=== PATIENT | male | born 1995 | race Two or more races ===

== ENCOUNTER 2021-02-02 07:47 | Emergency (ER) | payer OTHER, SELFPAY ==
--- NOTE | ~2021-02-02 | CT_ITS ---
EXAMINATION: CT ABDOMEN AND PELVIS WITH CONTRAST CLINICAL INFORMATION: 25-year-old male with right lower quadrant pain COMPARISON: None TECHNIQUE: Multidetector volumetric images were obtained from the superior aspect of the liver through the pubic symphysis following administration 85 mL of Omnipaque 350 intravenous contrast. Sagittal and coronal reformatted images were obtained on the technologist's workstation. This CT examination was performed using dose optimization techniques as appropriate, variously including the following: *Automated exposure control *Adjustment of mA and/or kV according to patient size (this includes techniques or standardized protocols for targeted exams where dose is matched to indication/reason for exam; i.e. extremities or head) *Use of iterative reconstruction technique DLP: 1437 mGy-cm FINDINGS: Visualized lung bases demonstrate mild dependent atelectasis. The liver is normal in size but demonstrates diffusely decreased attenuation. The gallbladder is normal in appearance. The pancreas, spleen and adrenal glands are unremarkable. Symmetrically enhancing kidneys. There is mild right-sided hydroureteronephrosis secondary to a 2 mm calculus within the right ureterovesical junction. An additional 1 mm nonobstructing calculus is present within the lower pole the right kidney. No left-sided renal calculi are present. The bladder is relatively decompressed and therefore not optimally characterized. Tiny hiatal hernia. The stomach is decompressed. Normal caliber loops of small and large bowel. Normal appendix. Normal caliber abdominal aorta. No retroperitoneal lymphadenopathy. No gross free pelvic fluid. No inguinal lymphadenopathy. Normal-sized prostate gland. No acute osseous abnormality. CT/CT abdomen pelvis w con IMPRESSION: 1. Mild right-sided hydroureteronephrosis secondary to a 2 mm calculus within the right ureterovesical junction. 2. An additional 1 mm nonobstructing right renal calculus is present. 3. No left-sided renal calculi noted. 4. Diffusely decreased liver attenuation suggesting hepatic steatosis. Correlation with liver enzymes recommended.
[2021-02-02 07:49] VITALS: BP 162/89; PULSE 121; RESP 17; TEMP 36.4; O2SAT 100; BMI 33.5
[2021-02-02] MEDS: 0.9 % Sodium Chloride 1,000 ML 999 ML IV (08:20)
[2021-02-02 08:25] LABS: MANUAL DIFF FLAG NO
[2021-02-02 08:26] LABS: Basophils Absolute Auto 0.1 X10*3/uL (0.0-0.2); Basophils Percent Auto 0.6 % (0-2); Eosinophils Absolute Auto 0.2 X10*3/uL (0.0-0.4); Eosinophils Percent Auto 2.4 % (0-4); Hematocrit 45.6 % (42-52); Hemoglobin 14.6 g/dl (14.0-18.0); Imm Gran Abs Auto 0.06 X10*3/uL (0.00-0.03); Imm Gran Pct Auto 0.8 % (0.0-0.4); Lymphocytes Absolute Auto 3.6 X10*3/uL (1.2-4.9); Lymphocytes Percent Auto 46.2 % (20-40); Mean Corpuscular Hemoglobin 27.2 pg (27.0-33.0); Mean Corpuscular Volume 84.9 fL (80-98); Monocytes Absolute Auto 0.6 X10*3/uL (0.1-1.2); Monocytes Percent Auto 7.7 % (2-11); Neutrophils Absolute Auto 3.3 X10*3/uL (2.0-8.3); Neutrophils Percent Auto 42.3 % (45-73); Platelet Count 248 X10*3/uL (160-400); Red Blood Count 5.37 X10*6/uL (4.60-5.80); Red Cell Distribution Width 12.9 % (11.0-16.0); White Blood Count 7.8 X10*3/uL (4.8-10.8)
[2021-02-02 09:11] LABS: Alanine Aminotransferase 69 U/L (0-40); Albumin Level 4.4 g/dL (3.5-5.0); Alkaline Phosphatase 109 U/L (39-117); Aspartate Amino Transferase 35 U/L (5-37); Bilirubin Direct 0.2 mg/dL (0.0-0.5); Bilirubin Total 0.7 mg/dL (0.0-1.0); Total Protein 7.7 g/dL (6.5-8.0)
[2021-02-02 09:12] LABS: Alanine Aminotransferase 70 U/L (0-40); Albumin Level 4.5 g/dL (3.5-5.0); Alkaline Phosphatase 108 U/L (39-117); Anion Gap 18 (12-20); Aspartate Amino Transferase 34 U/L (5-37); Bilirubin Total 0.7 mg/dL (0.0-1.0); Blood Urea Nitrogen 10 mg/dL (9-16); Calcium 10.3 mg/dL (8.4-10.2); Carbon Dioxide 18 mmol/L (22-29); Chloride 107 mmol/L (96-108); Creatinine Clr Calc Pharmacy 163.8; Estimated Glomerular Filt Rate > 60; Glucose Random 139 mg/dL (60-115); Potassium 4.2 mmol/L (3.3-5.1); Sodium 139 mmol/L (135-145); Total Protein 7.7 g/dL (6.5-8.0)
[2021-02-02] MEDS: 0.9 % Sodium Chloride 1,000 ML 999 ML IVCONT (09:20)
[2021-02-02] MEDS: HYDROmorphone HCl 1 MG/ML SYRINGE IVPUSH (09:20)
[2021-02-02] MEDS: ondansetron HCL 4 MG/2 ML VIAL IVPUSH (09:20)
[2021-02-02 09:36] VITALS: BP 159/100; PULSE 94; RESP 16; TEMP 37.1; O2SAT 97
--- NOTE | 2021-02-02 09:37 | ED.ABDPAIN ---
HPI - Abdominal Pain General Chief Complaint: Abdominal Pain Stated Complaint: vomiting Time Seen by Provider: 02/02/21 09:03 Source: patient and family Mode of arrival: ambulatory Limitations: no limitations History of Present Illness HPI narrative: 25 y/o male presenting to the ER from home with acute onset of severe 10/10 RLQ pain that started 1 hour ago. It is associated with nausea and vomiting. He has never had pain like this before. He has never had any abdominal surgeries before. He denies urinary symptoms, fever, chills, diarrhea or constipation. MD elicited complaint: abdominal pain Pertinent past history: none Onset (ago): hour(s) (1) Pain Consistency: constant Location: RLQ Severity: severe Pain scale (0-10): 10 Quality: stabbing and sharp Migration to: no migration Exacerbating factors: nothing Relieving factors: nothing Associated symptoms: nausea and vomiting Related Data Previous Rx's Medication Instructions Recorded hydrocodone-acetaminophen 1 tab PO Q6H PRN #7 tab 02/02/21 ibuprofen 600 mg PO Q8H PRN #14 tab 02/02/21 prednisone 40 mg PO DAILY 3 Days #6 tab 02/02/21 tamsulosin [Flomax] 0.4 mg PO DAILY #6 cap 02/02/21 Allergies Allergy/AdvReac Type Severity Reaction Status Date / Time Penicillins Allergy Hives Verified 02/02/21 09:12 Sulfa (Sulfonamide Allergy Hives Verified 02/02/21 09:12 Antibiotics) Review of Systems Review of Systems Constitutional: No Fever, No Chills ENT/Mouth: No sore throat, No Rhinorrhea, No Swallowing Difficulty Eyes: No Eye Pain, No Swelling, No Redness Cardiovascular: No Chest Pain, No SOB, No Orthopnea, No Edema Respiratory: No Cough, No Sputum, No Wheezing, No dyspnea Gastrointestinal: + Nausea, + Vomiting, No Diarrhea, + abdominal Pain, No Hematochezia, No Melena Genitourinary: No Dysuria, No Urinary Frequency, No Hematuria Musculoskeletal: No joint pain, No Myalgias Skin: No Skin Lesions, No rash Neuro: No Weakness, No Numbness, No Dizziness, No Headache Psych: + Anxiety/Panic, No Depression Heme/Lymph: No Bruising, No Lymphadenopathy Endocrine: No Polyuria, No Polydipsia Physical Exam Vital Signs: Vital Signs: Last Vital Signs Temp 98.3 F 02/02/21 13:12 Pulse 106 H 02/02/21 13:12 Resp 14 02/02/21 13:12 BP 139/86 02/02/21 13:12 Pulse Ox 96 02/02/21 13:12 Body Mass Index 33.5 Appearance: Alert. Oriented X3. Appears to be in severe pain, curled up on the stretcher on his knees Eyes: Pupils equal, round and reactive to light. ENT: Pharynx normal. Neck: Normal inspection. Neck supple. CVS: Tachycardic, regular rhythm. Pulses normal. Respiratory: No respiratory distress. Breath sounds normal. Abdomen: Soft with significant RLQ tenderness, +guarding and rebound. +CVA tenderness on the right Skin: Skin warm and dry. Normal skin color. Normal skin turgor. No rashes. Extremities: No lower extremity edema. Neuro: Oriented X 3. Moving all extremities, walking around uncomfortable, unable to perform full neuro assessment due to significant pain Course Course Course Narrative: 25 y/o male presenting to the ER with acute onset of severe RLQ pain x1 hour along with N/V. Concern for acute appendicitis, possible bowel perforation, question kidney stone. Tachycardic and in severe pain on arrival, vomiting. Will give IV dilaudid, IV zofran, IVF and get STAT CT scan for further evaluation. Reevaluation(s) Reevaluation #1: No leukocytosis. Lab workup unremarkable. CT scan pending. Additional IV dilaudid ordered for ongoing severe pain. Reevaluation #2: CT scan showing Mild right-sided hydroureteronephrosis secondary to a 2 mm calculus within the right ureterovesical junction. IV Toradol, IV decadron and Flomax ordered. Pain improved but persists. Patient will likely pass the stone on his own. Will continue to [facility]. Reevaluation #3: Pain much improved. Pending UA and then patient can be discharged home with pain control, flomax and f/u with Urology UA negative for infection. Stable for d/c home with Urology follow up. Patient counseled, agrees with plan. MDM - Abdominal Pain Lab Data Result diagrams: 02/02/21 08:20 02/02/21 08:20 Labs: Lab Results 02/02/21 02/02/21 02/02/21 Range/Units 08:20 08:20 08:20 WBC 7.8 (4.8-10.8) X10*3/uL RBC 5.37 (4.60-5.80) X10*6/uL Hgb 14.6 (14.0-18.0) g/dl Hct 45.6 (42-52) % MCV 84.9 (80-98) fL MCH 27.2 (27.0-33.0) pg MCHC 32.0 (31.0-36.0) g/dl RDW 12.9 (11.0-16.0) % Plt Count 248 (160-400) X10*3/uL MPV 10.0 (9.4-12.4) fL Immature Gran % (Auto) 0.8 H (0.0-0.4) % Neut % (Auto) 42.3 L (45-73) % Lymph % (Auto) 46.2 H (20-40) % [place] % (Auto) 7.7 (2-11) % Eos % (Auto) 2.4 (0-4) % Baso % (Auto) 0.6 (0-2) % Lymph # (Auto) 3.6 (1.2-4.9) X10*3/uL [place] # (Auto) 0.6 (0.1-1.2) X10*3/uL Eos # (Auto) 0.2 (0.0-0.4) X10*3/uL Baso # (Auto) 0.1 (0.0-0.2) X10*3/uL Abs Immat Gran (auto) 0.06 H (0.00-0.03) X10*3/uL Absolute Neuts (auto) 3.3 (2.0-8.3) X10*3/uL Absolute Nucleated RBC 0.000 (0.0-0.012) X10*3/uL Nucleated RBC % (auto) 0.0 (0.0-0.2) /100WBC Sodium 139 (135-145) mmol/L Potassium 4.2 (3.3-5.1) mmol/L Chloride 107 (96-108) mmol/L Carbon Dioxide 18 L (22-29) mmol/L Anion Gap 18 (12-20) BUN 10 (9-16) mg/dL Creatinine 0.88 (0.5-1.4) mg/dL Estim Creat Clear Calc 163.8 Estimated GFR > 60 Random Glucose 139 H (60-115) mg/dL Lactic Acid (0.5-2.0) mmol/L Lactic Acid Fup @ 2Hr (0.5-2.0) mmol/L Calcium 10.3 H (8.4-10.2) mg/dL Total Bilirubin 0.7 0.7 (0.0-1.0) mg/dL Direct Bilirubin 0.2 (0.0-0.5) mg/dL AST 34 35 (5-37) U/L ALT 70 H 69 H (0-40) U/L Alkaline Phosphatase 108 109 (39-117) U/L Total Protein 7.7 7.7 (6.5-8.0) g/dL Albumin 4.5 4.4 (3.5-5.0) g/dL Urine Color Urine Appearance Urine pH (5.0-8.0) Ur Specific [place] (1.005-1.025) Urine Protein (NEG-TRACE) MG/DL Urine Glucose (UA) (NEG) MG/DL Urine Ketones (NEG) MG/DL Urine Blood (NEG) Urine Nitrite (NEG) Ur Leukocyte Esterase (NEG) Urine RBC (0) /HPF Urine WBC (0-4) /HPF Ur Squamous Epith Cells /LPF Urine Bacteria /LPF Urine Mucus /LPF 02/02/21 02/02/21 02/02/21 Range/Units 10:09 12:29 12:49 WBC (4.8-10.8) X10*3/uL RBC (4.60-5.80) X10*6/uL Hgb (14.0-18.0) g/dl Hct (42-52) % MCV (80-98) fL MCH (27.0-33.0) pg MCHC (31.0-36.0) g/dl RDW (11.0-16.0) % Plt Count (160-400) X10*3/uL MPV (9.4-12.4) fL Immature Gran % (Auto) (0.0-0.4) % Neut % (Auto) (45-73) % Lymph % (Auto) (20-40) % [place] % (Auto) (2-11) % Eos % (Auto) (0-4) % Baso % (Auto) (0-2) % Lymph # (Auto) (1.2-4.9) X10*3/uL [place] # (Auto) (0.1-1.2) X10*3/uL Eos # (Auto) (0.0-0.4) X10*3/uL Baso # (Auto) (0.0-0.2) X10*3/uL Abs Immat Gran (auto) (0.00-0.03) X10*3/uL Absolute Neuts (auto) (2.0-8.3) X10*3/uL Absolute Nucleated RBC (0.0-0.012) X10*3/uL Nucleated RBC % (auto) (0.0-0.2) /100WBC Sodium (135-145) mmol/L Potassium (3.3-5.1) mmol/L Chloride (96-108) mmol/L Carbon Dioxide (22-29) mmol/L Anion Gap (12-20) BUN (9-16) mg/dL Creatinine (0.5-1.4) mg/dL Estim Creat Clear Calc Estimated GFR Random Glucose (60-115) mg/dL Lactic Acid 3.6 H* (0.5-2.0) mmol/L Lactic Acid Fup @ 2Hr 2.6 H* (0.5-2.0) mmol/L Calcium (8.4-10.2) mg/dL Total Bilirubin (0.0-1.0) mg/dL Direct Bilirubin (0.0-0.5) mg/dL AST (5-37) U/L ALT (0-40) U/L Alkaline Phosphatase (39-117) U/L Total Protein (6.5-8.0) g/dL Albumin (3.5-5.0) g/dL Urine Color YELLOW Urine Appearance HAZY Urine pH 6.0 (5.0-8.0) Ur Specific [place] <= 1.005 (1.005-1.025) Urine Protein NEG (NEG-TRACE) MG/DL Urine Glucose (UA) NEG (NEG) MG/DL Urine Ketones NEG (NEG) MG/DL Urine Blood 2+ H (NEG) Urine Nitrite NEG (NEG) Ur Leukocyte Esterase NEG (NEG) Urine RBC 50-75 H (0) /HPF Urine WBC 0 (0-4) /HPF Ur Squamous Epith Cells 1+ /LPF Urine Bacteria NONE /LPF Urine Mucus 1+ /LPF Critical Care Time Critical Care Time Critical Care Time: Yes Total Critical Care Time: 40 Attestation: I have personally provided critical care time exclusive of time spent on separately billable procedures. Time includes review of lab data, radiology results, discussion with consultants, and monitoring for potential decompensation. Intervention performed as documented. Discharge Plan Discharge Clinical Impression: Calculus of kidney Patient Disposition: Home, Self-Care Instructions: Kidney Stones (ED), How to Strain Your Urine (ED) Additional Instructions: Your CT scan showed a small kidney stone on the right side causing slight swelling of your kidney. You will likely pass this on your own in the next 24 hours. Take the prescribed medications as directed. Follow up with Urology in 1 week. If you develop new or worsening symptoms call 911 or come back to the ER for further evaluation. Prescriptions: New tamsulosin [Flomax] 0.4 mg capsule 0.4 mg PO DAILY Qty: 6 RF: 0 ibuprofen 600 mg tablet 600 mg PO Q8H PRN (Reason: pain) Qty: 14 RF: 0 prednisone 20 mg tablet 40 mg PO DAILY 3 Days Qty: 6 RF: 0 hydrocodone-acetaminophen 5-325 mg tablet 1 tab PO Q6H PRN (Reason: pain) Qty: 7 RF: 0 Referrals: Jeronimo Kingsley MD [Physician] - 1 week (kidney stone w/ mild hydro) [facility] [place] Past Medical History Attestation statement: The following information was validated with the patient. Medical History Asthma No known health problems Social History Social History Alcohol intake: unknown Patient Tobacco Use Status: Tobacco use Unknown Advance Directives: No Advance Directives Information Provided: No
[2021-02-02] MEDS: iohexoL 350 MG/ML 100 ML INFUS..BTL IV (10:21)
[2021-02-02 10:33] LABS: Lactic Acid 3.6 mmol/L (0.5-2.0)
[2021-02-02] MEDS: HYDROmorphone HCl 0.5 MG/0.5 ML SYRINGE IVPUSH (10:39)
--- NOTE | 2021-02-02 10:40 | PC.NURSE ---
pt reporting some relief from RLQ pain. denies nausea at this time. appears pale, fatigue, slightly diaphoretic. sinus tach on monitor in low 100s, remains afebrile.
[2021-02-02] MEDS: dexAMETHasone sod phosphate 4 MG/ML VIAL 8 MG IVPUSH (10:58)
[2021-02-02] MEDS: Ketorolac Tromethamine 30 MG/ML VIAL IVPUSH (10:58)
[2021-02-02] MEDS: Tamsulosin HCL 0.4 MG CAPSULE PO (10:59)
[2021-02-02 11:29] VITALS: BP 165/110; PULSE 102; RESP 24; TEMP 36.7; O2SAT 95
[2021-02-02 12:12] LABS: Reflex Lactate? Lactic Acid Added
[2021-02-02 12:53] LABS: ~Lactic Acid-LAB USE ONLY 2.6 mmol/L (0.5-2.0)
[2021-02-02 12:54] LABS: Glucose Urine UA NEG (NEG); Leukocyte Esterase Urine NEG (NEG); Nitrite Urine NEG (NEG); Specific Gravity - Urine <= 1.005 (1.005-1.025); Urine Blood 2+ (NEG); Urine Ketones NEG (NEG); Urine Protein NEG (NEG-TRACE)
[2021-02-02 12:55] LABS: Appearance Urine HAZY; Color Urine YELLOW
[2021-02-02 13:06] LABS: Mucus Urine 1+ /LPF; RBC Urine 50-75 /HPF (0); Squamous Epithelial Cell Urine 1+ /LPF; WBC Urine 0 /HPF (0-4)
[2021-02-02 13:12] VITALS: BP 139/86; PULSE 106; RESP 14; TEMP 36.8; O2SAT 96
[2021-02-02 14:32] LABS: Reflex Lactate? 2 Y
== END 2021-02-02 13:37 | disposition home or self-care (01) ==
PROVIDERS: Physician Assistant; Emergency Provider Emergency Medicine Emergency Medical Services
DX: N13.2 Hydronephrosis with renal and ureteral calculous obstruction (principal); R11.2 Nausea with vomiting, unspecified
CPT/HCPCS: 36415; 74177; 80053; 80076; 81001; 82248; 83605; 85025; 87040; 96361; 96374; 96375; 96376; 99285; 99291; J1100; J1170; J1885; J2405; Q9967

== ENCOUNTER 2024-10-28 19:38 | Emergency (ER) | payer OTHER, SELFPAY ==
[2024-10-28 20:04] VITALS: BP 111/72; PULSE 105; RESP 20; TEMP 37.2; O2SAT 98; BMI 29.1
--- NOTE | 2024-10-28 20:07 | ED.GENADULT ---
HPI - General Adult General Chief complaint: Abdominal Pain Stated complaint: abd pain / hasnt eaten 4 days / nausea Time Seen by Provider: 10/29/24 00:26 Source: patient Limitations: no limitations History of Present Illness ED Provider: Margaret Biggs PA-C HPI narrative: 29-year-old male presents with nausea vomiting diarrhea x3 days. Associated lower abdominal cramping. Generalized malaise, poor oral intake and weakness. No sick contacts with similar symptoms. Denies recent travel, use of antibiotics or hospitalization. Related Data Previous Rx's ?Medication ?Instructions ?Recorded hydrocodone 5 mg-acetaminophen 325 1 tab PO Q6H PRN pain #7 tabs 02/02/21 mg tablet ibuprofen 600 mg tablet 600 mg PO Q8H PRN pain #14 tabs 02/02/21 prednisone 20 mg tablet 40 mg (2 x 20 mg) PO DAILY 3 days 02/02/21 #6 tabs tamsulosin 0.4 mg capsule (Flomax) 0.4 mg PO DAILY #6 caps 02/02/21 dicyclomine 10 mg capsule 10 mg PO BID PRN abdominal pain #7 10/29/24 caps ondansetron HCl 4 mg tablet 4 mg PO Q8H PRN nausea and 10/29/24 vomiting #10 tabs Allergies Allergy/AdvReac Type Severity Reaction Status Date / Time Penicillins Allergy Hives Verified 10/28/24 20:06 Sulfa (Sulfonamide Allergy Hives Verified 10/28/24 20:06 Antibiotics) Review of Systems Review of Systems: Yes all other systems are reviewed and are negative Constitutional: Constitutional: Reports fatigue, Denies fever(s) and Reports malaise Cardiovascular: Cardiovascular: Denies chest pain and Denies dyspnea Respiratory: Respiratory: Denies cough and Denies dyspnea Gastrointestinal: Gastrointestinal: Reports abdominal pain, Reports GI cramping, Reports diarrhea, Reports nausea and Reports vomiting Musculoskeletal: Musculoskeletal: Reports myalgias Endocrine: Endocrine: Reports fatigue PMFSH Past Medical History Attestation statement: The following information was validated with the patient. Medical History Asthma No known health problems Social History Social History (System 05/25/23 @ 14:28 by Alisa Benítez) Alcohol intake: unknown Patient Tobacco Use Status: Tobacco use Unknown Advance Directives: No Advance Directives Information Provided: No Do you have a plan to hurt others: No Plan Physical Exam ED Vital Signs: Vital Signs - 24 hr 10/28/24 20:04 10/28/24 22:33 10/29/24 00:32 Temperature 99.0 F 101.1 F H 99.4 F Pulse Rate 105 H 114 H 91 Respiratory Rate 20 20 20 Blood Pressure 111/72 141/71 H 119/64 Pulse Oximetry 98 94 95 Oxygen Delivery Method Room Air Room Air Room Air BMI result Body Mass Index 29.1 Const Other: Alert ill-appearing Orientation/consciousness: patient oriented x3 Resp Effort & Inspection: normal respiratory effort Cardio Other: Normal peripheral perfusion Skin Other: Warm dry no rash Neuro General: patient oriented x3, gait normal, no focal motor deficits and CN's II-XI intact bilaterally Psych Other: Cooperative Course Course Course Narrative: RME, this is a rapid medical exam performed by Milton Reyes please refer to primary provider for complete H&P- 29-year-old male presents for evaluation abdominal pain, nausea and vomiting for the last 3 days. Plan for labs, urinalysis and viral swabs. Medications Administered Discontinued Medications Generic Name Dose Route Start Last Admin Trade Name Freq PRN Reason Stop Dose Admin Acetaminophen 650 mg 10/28/24 23:19 10/28/24 23:22 Acetaminophen 325 Mg Tablet PO 10/28/24 23:20 650 mg ONCE ONE Administration Medical Decision Making Medical Decision Making [facility] Narrative: 29-year-old male presents with nausea vomiting diarrhea x3 days. Associated lower abdominal cramping. Generalized malaise, poor oral intake and weakness. No sick contacts with similar symptoms. Denies recent travel, use of antibiotics or hospitalization. No chronic issues History: Per patient I have considered the following differential diagnoses: Viral gastroenteritis, viral syndrome, diverticulitis, C diff, traveler's diarrhea Plan: Screening labs and a viral panel were obtained from triage, he is positive for influenza B. we will treat accordingly. He is out of the window for Tamiflu. Thought about diverticulitis, however there was no focal left abdominal pain on exam. He also has no risk factors for C diff or traveler's diarrhea. I have independently reviewed the following tests: Labs: No leukocytosis, not anemic, no electrolyte abnormality, positive for influenza B Lab Data 10/28/24 20:27 10/28/24 23:18 Labs: Lab Results 10/28/24 10/28/24 10/28/24 Range/Units 20:27 22:43 23:18 WBC 9.3 (4.8-10.8) X10*3/uL RBC 5.18 (4.60-5.80) X10*6/uL Hgb 14.8 (14.0-18.0) g/dl Hct 43.5 (42.0-52.0) % MCV 84.0 (80.0-98.0) fL MCH 28.6 (27.0-33.0) pg MCHC 34.0 (31.0-36.0) g/dl RDW 13.9 (11.0-16.0) % Plt Count 179 (160-400) X10*3/uL MPV 9.4 (9.4-12.4) fL Immature Gran % (Auto) 0.3 (0.0-0.4) % Neut % (Auto) 77.8 H (45-73) % Lymph % (Auto) 13.8 L (20-40) % [place] % (Auto) 8.0 (2-11) % Eos % (Auto) 0.0 (0-4) % Baso % (Auto) 0.1 (0-2) % Lymph # (Auto) 1.3 (1.2-4.9) X10*3/uL [place] # (Auto) 0.8 (0.1-1.2) X10*3/uL Eos # (Auto) 0.0 (0.0-0.4) X10*3/uL Baso # (Auto) 0.0 (0.0-0.2) X10*3/uL Abs Immat Gran (auto) 0.03 (0.00-0.03) X10*3/uL Absolute Neuts (auto) 7.2 (2.0-8.3) x10*3/uL Absolute Nucleated RBC 0.000 (0.0-0.012) X10*3/uL Nucleated RBC % (auto) 0.0 (0.0-0.2) /100WBC Sodium 131 L 137 (135-145) mmol/L Potassium 5.8 H 4.4 D (3.3-5.1) mmol/L Chloride 108 105 (96-108) mmol/L Carbon Dioxide 13 L 24 (22-29) mmol/L Anion Gap 16 12 (12-20) BUN 11 12 (9-16) mg/dL Creatinine 0.90 0.90 (0.5-1.4) mg/dL Estim Creat Clear Calc 149.2 149.2 Estimated GFR > 60 > 60 Random Glucose 107 116 H (60-115) mg/dL Calcium 9.4 D 9.7 (8.4-10.2) mg/dL Total Bilirubin 0.8 0.8 (0.0-1.0) mg/dL AST 73 H 29 (5-37) U/L ALT 16 22 (0-40) U/L Alkaline Phosphatase 89 81 (39-117) U/L Total Protein 8.8 H 7.6 (6.5-8.0) g/dL Albumin 3.8 4.4 (3.5-5.0) g/dL Lipase 19 (8-78) U/L Urine Color Dark Yellow Urine Appearance Clear Urine pH 7.0 (5.0-9.0) Ur Specific [place] >= 1.030 H (1.005-1.025) Urine Protein 30 (1+) H (Neg-Trace) mg/dL Urine Glucose (UA) Negative (Negative) mg/dL Urine Ketones 40 (Negative) mg/dL Urine Blood Negative (Negative) Urine Nitrite Negative (Negative) Ur Leukocyte Esterase Negative (Negative) Urine RBC 0-2 (0-2) /HPF Urine WBC 0-5 (0-5) /HPF Ur Squamous Epith Cells 0-2 (0-2) /HPF Urine Bacteria None Seen (None Seen) Hyaline Casts 0-2 (0-2) /LPF Influenza Type A (PCR) NEGATIVE (Negative) Influenza Type B (PCR) POSITIVE A (Negative) RSV RNA Qual (PCR) NEGATIVE (Negative) SARS-CoV-2 RNA (RT-PCR) NEGATIVE (Negative) Discharge Plan Discharge Clinical Impression: Influenza B, Gastroenteritis Patient Disposition: Home, Self-Care Instructions: Influenza (ED), Gastroenteritis (ED) Additional Instructions: You tested positive for influenza B, this is the cause of your symptoms. See home care instructions. Use the dicyclomine as needed for abdominal pain and diarrhea, uses Zofran as needed for nausea. Use [id number] Tylenol and ibuprofen for body ache, headache and fever. Follow up with your primary care provider as needed. Prescriptions: New ondansetron HCl 4 mg tablet 4 mg PO Q8H PRN (Reason: nausea and vomiting) Qty: 10 0RF dicyclomine 10 mg capsule 10 mg PO BID PRN (Reason: abdominal pain) Qty: 7 0RF No Action tamsulosin [Flomax] 0.4 mg capsule 0.4 mg PO DAILY Qty: 6 0RF ibuprofen 600 mg tablet 600 mg PO Q8H PRN (Reason: pain) Qty: 14 0RF prednisone 20 mg tablet 40 mg PO DAILY 3 Days Qty: 6 0RF hydrocodone-acetaminophen 5-325 mg tablet 1 tab PO Q6H PRN (Reason: pain) Qty: 7 0RF Rx Instructions: partial fill ok Print Language: Slovak
[2024-10-28 20:29] LABS: MANUAL DIFF FLAG NO
[2024-10-28 20:31] LABS: Basophils Percent Auto 0.1 % (0-2); Hematocrit 43.5 % (42.0-52.0); Hemoglobin 14.8 g/dl (14.0-18.0); Imm Gran Abs Auto 0.03 X10*3/uL (0.00-0.03); Imm Gran Pct Auto 0.3 % (0.0-0.4); Lymphocytes Absolute Auto 1.3 X10*3/uL (1.2-4.9); Lymphocytes Percent Auto 13.8 % (20-40); Mean Corpuscular Hemoglobin 28.6 pg (27.0-33.0); Mean Platelet Volume 9.4 fL (9.4-12.4); Monocytes Absolute Auto 0.8 X10*3/uL (0.1-1.2); Neutrophils Absolute Auto 7.2 x10*3/uL (2.0-8.3); Neutrophils Percent Auto 77.8 % (45-73); Platelet Count 179 X10*3/uL (160-400); Red Blood Count 5.18 X10*6/uL (4.60-5.80); Red Cell Distribution Width 13.9 % (11.0-16.0); White Blood Count 9.3 X10*3/uL (4.8-10.8)
[2024-10-28 20:49] LABS: Alanine Aminotransferase 16 U/L (0-40); Albumin Level 3.8 g/dL (3.5-5.0); Alkaline Phosphatase 89 U/L (39-117); Anion Gap 16 (12-20); Aspartate Amino Transferase 73 U/L (5-37); Bilirubin Total 0.8 mg/dL (0.0-1.0); Blood Urea Nitrogen 11 mg/dL (9-16); Calcium 9.4 mg/dL (8.4-10.2); Carbon Dioxide 13 mmol/L (22-29); Chloride 108 mmol/L (96-108); Creatinine Clr Calc Pharmacy 149.2; Estimated Glomerular Filt Rate > 60; Glucose Random 107 mg/dL (60-115); Lipase 19 U/L (8-78); Potassium 5.8 mmol/L (3.3-5.1); Sodium 131 mmol/L (135-145); Total Protein 8.8 g/dL (6.5-8.0)
[2024-10-28 22:33] VITALS: BP 141/71; PULSE 114; RESP 20; TEMP 38.4; O2SAT 94
--- NOTE | 2024-10-28 22:38 | PC.NURSE ---
spoke with lab re:serology for cov/flu/rsv- per circus laborer Curtis MAX was notified of recollect. specimen to be recollected at this time
[2024-10-28 22:51] LABS: Appearance Urine Clear; Color Urine Dark Yellow; Glucose Urine UA Negative (Negative); Leukocyte Esterase Urine Negative (Negative); Nitrite Urine Negative (Negative); Specific Gravity - Urine >= 1.030 (1.005-1.025); UMIC TRIGGER UACC YES; Urine Blood Negative (Negative); Urine Ketones 40 mg/dL (Negative); Urine Protein 30 (1+) mg/dL (Neg-Trace)
[2024-10-28 22:54] LABS: Bacteria Urine None Seen (None Seen); Hyaline Casts Urine 0-2 /LPF (0-2); RBC Urine 0-2 /HPF (0-2); Squamous Epithelial Cell Urine 0-2 /HPF (0-2); WBC Urine 0-5 /HPF (0-5)
[2024-10-28] MEDS: Acetaminophen 325 MG TABLET 650 MG PO (23:22)
[2024-10-28 23:27] LABS: Influenza A PCR NEGATIVE (Negative); Influenza B PCR POSITIVE (Negative); Resp Syncy Virus RNA Qual PCR NEGATIVE (Negative); SARS COV2 PCR INHOUSE NEGATIVE (Negative)
[2024-10-28 23:38] LABS: Alanine Aminotransferase 22 U/L (0-40); Albumin Level 4.4 g/dL (3.5-5.0); Alkaline Phosphatase 81 U/L (39-117); Anion Gap 12 (12-20); Aspartate Amino Transferase 29 U/L (5-37); Bilirubin Total 0.8 mg/dL (0.0-1.0); Blood Urea Nitrogen 12 mg/dL (9-16); Calcium 9.7 mg/dL (8.4-10.2); Carbon Dioxide 24 mmol/L (22-29); Chloride 105 mmol/L (96-108); Creatinine Clr Calc Pharmacy 149.2; Estimated Glomerular Filt Rate > 60; Glucose Random 116 mg/dL (60-115); Potassium 4.4 mmol/L (3.3-5.1); Sodium 137 mmol/L (135-145); Total Protein 7.6 g/dL (6.5-8.0)
[2024-10-29 00:32] VITALS: BP 119/64; PULSE 91; RESP 20; TEMP 37.4; O2SAT 95
[2024-10-29] MEDS: Ondansetron ODT 8 MG TAB.RAPDIS TRANSLINGU (01:01)
[2024-10-29] MEDS: Dicyclomine HCl 10 MG CAPSULE 20 MG PO (01:01)
[2024-10-29 01:04] VITALS: BP 119/64; PULSE 91; RESP 20; TEMP 37.4; O2SAT 95
== END 2024-10-29 01:05 | disposition home or self-care (01) ==
PROVIDERS: Physician Assistant; Emergency Provider Emergency Medicine; PCP Internal Medicine
DX: J10.1 Influenza due to other identified influenza virus with other respiratory manifestations (principal); K52.9 Noninfective gastroenteritis and colitis, unspecified; R10.30 Lower abdominal pain, unspecified; Z03.818 Encounter for observation for suspected exposure to other biological agents ruled out; J45.909 Unspecified asthma, uncomplicated; Z79.899 Other long term (current) drug therapy
CPT/HCPCS: 0241U; 36415; 80053; 81001; 83690; 85025; 99283; 99284

== ENCOUNTER 2024-12-20 13:48 | Emergency (ER) | payer OTHER, SELFPAY ==
[2024-12-20 14:05] VITALS: BP 133/81; PULSE 71; RESP 16; TEMP 36.4; O2SAT 97; BMI 25.8
--- NOTE | 2024-12-20 14:09 | ED.GENADULT ---
HPI - General Adult General Chief complaint: Dental/Oral Stated complaint: Lip swelling Time Seen by Provider: 12/20/24 17:41 Source: patient Mode of arrival: ambulatory Limitations: no limitations History of Present Illness HPI narrative: This is a 29-year-old man with a past medical history of nephrolithiasis who presents for evaluation of right upper lip pain/edema. Patient states that he popped a pimple on his upper lip 3 days prior to presentation. He states gradually worsening pain and swelling to the area. He states that he was also kicked by his 3-year-old daughter accidentally. Patient's significant other states that she squeezed it and expressed some white material from it earlier today. Patient states no fevers or chills. He states no sore throat, dysphagia or odynophagia. He states no headache or myalgias. He states no chest pain or dyspnea. He states allergies to penicillin and sulfa drugs. Related Data Previous Rx's ?Medication ?Instructions ?Recorded hydrocodone 5 mg-acetaminophen 325 1 tab PO Q6H PRN pain #7 tabs 02/02/21 mg tablet ibuprofen 600 mg tablet 600 mg PO Q8H PRN pain #14 tabs 02/02/21 prednisone 20 mg tablet 40 mg (2 x 20 mg) PO DAILY 3 days 02/02/21 #6 tabs tamsulosin 0.4 mg capsule (Flomax) 0.4 mg PO DAILY #6 caps 02/02/21 dicyclomine 10 mg capsule 10 mg PO BID PRN abdominal pain #7 10/29/24 caps ondansetron HCl 4 mg tablet 4 mg PO Q8H PRN nausea and 10/29/24 vomiting #10 tabs doxycycline hyclate 100 mg capsule 100 mg PO BID 7 days #14 caps 12/20/24 Allergies Allergy/AdvReac Type Severity Reaction Status Date / Time Penicillins Allergy Hives Verified 12/20/24 14:07 Sulfa (Sulfonamide Allergy Hives Verified 12/20/24 14:07 Antibiotics) Review of Systems Review of Systems: ROS as per [facility] Past Medical History Medical History Asthma No known health problems Social History Social History (System 05/25/23 @ 14:28 by Alisa Benítez) Alcohol intake: unknown Patient Tobacco Use Status: Tobacco use Unknown Physical Exam ED Vital Signs: Vital Signs - 24 hr 12/20/24 14:05 12/20/24 16:53 Temperature 97.6 F 98.1 F Pulse Rate 71 91 Respiratory Rate 16 18 Blood Pressure 133/81 120/82 Pulse Oximetry 97 98 Oxygen Delivery Method Room Air Room Air BMI result Body Mass Index 25.8 Gen: NAD, AOx3 HEENT: NCAT, EOMI, normal conjunctiva, uvula midline without edema, no posterior oropharynx erythema/exudates, no dental abscess, no sublingual edema, right upper lip erythema/edema Neck: Supple, no anterior neck edema/overlying skin changes CV: RRR Pulm: CTAB, no increased work of breathing GI: Soft, NTND, no rebound, guarding or rigidity Neuro: Grossly non focal Course Course Course Narrative: 12/20/24 1410 ADELA Jones This is a Rapid Medical Examination (RME) performed by Sravanthi King PA-C in triage. Full HPI, ROS, assessment and treatment plan per primary provider in the Main ED. Hx: 29 yo M here for eval of upper lip swelling x5 days. reports area began as pimple to outter lip region, now increasing in size w/ crusting. icing it w/ minimal relief. his child also kicked him in the mouth while sleeping the other day. PE/vitals: noted swelling to upper lip with crusting Plan: labs Medical Decision Making Medical Decision Making [facility] Narrative: Differential diagnosis includes, but is not limited to cellulitis, abscess. Patient is afebrile and hemodynamically stable on room air. Exam as above is consistent with cellulitis and I will treated as such. Given reported associated purulence, I will provide the patient with doxycycline. On re-examination, patient is well-appearing and in no acute distress. There is no indication for further emergent evaluation in this otherwise well-appearing patient as above. ?Patient is provided written and verbal instructions, educational materials, recommendations for outpatient follow-up, strict return precautions, prescription for doxycycline and teach back is performed. ?Patient states understanding and agreement with plan of care. ?Patient is discharged home in stable and improved condition. Admission/Observation Consideration of admission/observation: Escalation of care including admission/observation considered Lab Data [facility] Lab Attestation statement: I reviewed the patient's lab results. Labs including CBC, metabolic panel overall benign and reassuring. CRP is mildly elevated at 0.65 consistent with infection as above. 12/20/24 14:38 12/20/24 14:38 Labs: Lab Results 12/20/24 Range/Units 14:38 WBC 8.1 (4.8-10.8) X10*3/uL RBC 5.15 (4.60-5.80) X10*6/uL Hgb 14.4 (14.0-18.0) g/dl Hct 44.2 (42.0-52.0) % MCV 85.8 (80.0-98.0) fL MCH 28.0 (27.0-33.0) pg MCHC 32.6 (31.0-36.0) g/dl RDW 13.4 (11.0-16.0) % Plt Count 248 D (160-400) X10*3/uL MPV 9.4 (9.4-12.4) fL Immature Gran % (Auto) 0.2 (0.0-0.4) % Neut % (Auto) 61.7 (45-73) % Lymph % (Auto) 27.3 (20-40) % Bartholomew % (Auto) 6.7 (2-11) % Eos % (Auto) 3.5 (0-4) % Baso % (Auto) 0.6 (0-2) % Lymph # (Auto) 2.2 (1.2-4.9) X10*3/uL Bartholomew # (Auto) 0.5 (0.1-1.2) X10*3/uL Eos # (Auto) 0.3 (0.0-0.4) X10*3/uL Baso # (Auto) 0.1 (0.0-0.2) X10*3/uL Abs Immat Gran (auto) 0.02 (0.00-0.03) X10*3/uL Absolute Neuts (auto) 5.0 (2.0-8.3) x10*3/uL Absolute Nucleated RBC 0.000 (0.0-0.012) X10*3/uL Nucleated RBC % (auto) 0.0 (0.0-0.2) /100WBC ESR 13 (0-15) MM/HR Sodium 138 (135-145) mmol/L Potassium 3.9 (3.3-5.1) mmol/L Chloride 105 (96-108) mmol/L Carbon Dioxide 26 (22-29) mmol/L Anion Gap 11 L (12-20) BUN 8 L (9-16) mg/dL Creatinine 0.73 (0.5-1.4) mg/dL Estim Creat Clear Calc 166.8 Estimated GFR > 60 Random Glucose 107 (60-115) mg/dL Calcium 10.1 (8.4-10.2) mg/dL Total Bilirubin 1.1 H (0.0-1.0) mg/dL AST 16 (5-37) U/L ALT 16 (0-40) U/L Alkaline Phosphatase 103 (39-117) U/L C-Reactive Protein 0.65 H (< or = 0.50) mg/dL Total Protein 7.6 (6.5-8.0) g/dL Albumin 4.5 (3.5-5.0) g/dL Discharge Plan Discharge Clinical Impression: Cellulitis of lip Patient Disposition: Home, Self-Care Instructions: Cellulitis (ED) Additional Instructions: You were seen and evaluated in the emergency room. You were found to have an infection of your lip and you were started on antibiotics. A prescription for antibiotics has been sent to your pharmacy. Please take as directed and until completed. Your next dose of antibiotics should be taken tomorrow morning December 21, 2024. Please apply a warm compress several times a day for the next several days to help alleviate pain and swelling. Please take 600 mg ibuprofen every 6 hours with food and water as needed for pain/swelling. Taking this medication every 6 hours for at least a few days we will be very helpful. As your pain, swelling and infection improve you may decrease this to every 6 hours NEEDED. Follow-up with your primary care doctor in the next 1 week for re-evaluation. Return to the emergency room with a new concerns or symptoms. Prescriptions: New doxycycline hyclate 100 mg capsule 100 mg PO BID 7 Days Qty: 14 0RF No Action tamsulosin [Flomax] 0.4 mg capsule 0.4 mg PO DAILY Qty: 6 0RF ibuprofen 600 mg tablet 600 mg PO Q8H PRN (Reason: pain) Qty: 14 0RF prednisone 20 mg tablet 40 mg PO DAILY 3 Days Qty: 6 0RF hydrocodone-acetaminophen 5-325 mg tablet 1 tab PO Q6H PRN (Reason: pain) Qty: 7 0RF Rx Instructions: partial fill ok ondansetron HCl 4 mg tablet 4 mg PO Q8H PRN (Reason: nausea and vomiting) Qty: 10 0RF dicyclomine 10 mg capsule 10 mg PO BID PRN (Reason: abdominal pain) Qty: 7 0RF Print Language: Lithuanian
[2024-12-20 14:42] LABS: MANUAL DIFF FLAG NO
[2024-12-20 14:43] LABS: Basophils Absolute Auto 0.1 X10*3/uL (0.0-0.2); Basophils Percent Auto 0.6 % (0-2); Eosinophils Absolute Auto 0.3 X10*3/uL (0.0-0.4); Eosinophils Percent Auto 3.5 % (0-4); Hematocrit 44.2 % (42.0-52.0); Hemoglobin 14.4 g/dl (14.0-18.0); Imm Gran Abs Auto 0.02 X10*3/uL (0.00-0.03); Imm Gran Pct Auto 0.2 % (0.0-0.4); Lymphocytes Absolute Auto 2.2 X10*3/uL (1.2-4.9); Lymphocytes Percent Auto 27.3 % (20-40); Mean Corpuscular HGB Conc 32.6 g/dl (31.0-36.0); Mean Corpuscular Volume 85.8 fL (80.0-98.0); Mean Platelet Volume 9.4 fL (9.4-12.4); Monocytes Absolute Auto 0.5 X10*3/uL (0.1-1.2); Monocytes Percent Auto 6.7 % (2-11); Neutrophils Percent Auto 61.7 % (45-73); Platelet Count 248 X10*3/uL (160-400); Red Blood Count 5.15 X10*6/uL (4.60-5.80); Red Cell Distribution Width 13.4 % (11.0-16.0); White Blood Count 8.1 X10*3/uL (4.8-10.8)
[2024-12-20 15:19] LABS: Erythrocyte Sedimentation Rate 13 MM/HR (0-15)
[2024-12-20 15:23] LABS: Alanine Aminotransferase 16 U/L (0-40); Albumin Level 4.5 g/dL (3.5-5.0); Alkaline Phosphatase 103 U/L (39-117); Anion Gap 11 (12-20); Aspartate Amino Transferase 16 U/L (5-37); Bilirubin Total 1.1 mg/dL (0.0-1.0); Blood Urea Nitrogen 8 mg/dL (9-16); C Reactive Protein 0.65 mg/dL (< or = 0.50); Calcium 10.1 mg/dL (8.4-10.2); Carbon Dioxide 26 mmol/L (22-29); Chloride 105 mmol/L (96-108); Creatinine Clr Calc Pharmacy 166.8; Estimated Glomerular Filt Rate > 60; Glucose Random 107 mg/dL (60-115); Potassium 3.9 mmol/L (3.3-5.1); Sodium 138 mmol/L (135-145); Total Protein 7.6 g/dL (6.5-8.0)
[2024-12-20 16:53] VITALS: BP 120/82; PULSE 91; RESP 18; TEMP 36.7; O2SAT 98
--- OUTSIDE RECORDS SUMMARY | 2024-12-20 17:56 | XMS_ITS | Encounter Summary ---
Author Organization [facility] Address [address] [place], [place] [id number] Phone Care Team Providers Care Aquarist Name Role Phone Doreen Mcleod MD Primary Care Provider [phone] Encounter Details Date Type Department Care Team (Late st Contact Info) Description 03/11/2017 Conversion Encounter [facility] - [address], [address] [place] [address] Doreen Mcleod MD [address] [place] [address] Social History Tobacco Use Types Packs/Day Years Used Date Smoking Tobacco: Never Assessed Sex and Gender Information Value Date Recorded Sex Assigned at Not on file Legal Sex Male 11:14 PM EST Gender Identity Not on file Sexual Orientation Not on file documented as of this encounter Plan of Treatment Not on file documented as of this encounter Visit Diagnoses Not on filedocumented in this encounter Care Teams Aquarist Relationship Specialty Start Date End Date Doreen Mcleod MD [address] [place] [address] PCP - General 09/23/16 10/25/19 documented as of this encounter
--- OUTSIDE RECORDS SUMMARY | 2024-12-20 17:56 | XMS_ITS | Clinical Summary ---
Author Organization [facility] Address [address] [place] [phone] Phone Care Team Providers Care Orthopaedic Technologist Name Role Phone Unavailable Primary Care Provider Unavailabl e Allergies Active Allergy Reactions Criticality Noted Date Comments Cefadroxil Rash Low Cephalexin Rash Low Medications fluticasone 100 MCG/BLIST diskus inhaler Administer 50 mcg into affected nostril(s). Active albuterol HFA (PROAIR HFA) 108 (90 Base) MCG/ACT inhalerIndication s:Mild intermittent asthma, uncomplicated Inhale 2 puffs every 4 (four) hours as needed for wheezing. 1 Units 8 Active Additional Information Patient not taking.Reported on 10/11/2018 beclomethasone (QVAR) 80 MCG/ACT inhalerIndication s:Mild intermittent asthma without complication Inhale 1 puff 2 (two) times a day. Rinse mouth with water after use, do not swallow. 1 Units 5 8 Active Additional Information Patient not taking.Reported on 10/11/2018 Active Problems Problem Noted Date Diagnosed Date Sleep disturbance 06/23/2018 Overview (06/23/2018): Concern for sleep apnea based on history, referred to sleep medicine for sleep study overnight. Assessment & Plan (06/23/2018 10:47 AM EST): Please call to schedule a sleep study to investigate your difficulties at night and see if you might have sleep apnea Allergic rhinitis 05/28/2015 Overview (06/21/2017): uses flonase during allergy season. Spring season is a trigger. 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 With MTHFR C677T, if folate levels are good, homocystine level is normal. Lower concern because Deepak is a heterozygote. Mild intermittent asthma, uncomplicated 05/28/20 15 Overview (06/23/2018): Restarted on Flovent for winter Assessment & Plan (06/23/2018 10:46 AM EST): Use Flovent twice a day for the winter to achieve better control of your asthma. Recheck in the office for any worsening breathing. Overweight 05/28/2015 Overview (06/23/2018): BMI 32, checking labs again today (06/2018) Immunizations Immunization Administration Dates Next Due DTaP 03/16/2001, 8,1997,07/20,1997 HPV, Quadrivalent 06/01/2013,09/29/2012,03/24/20 12 Hep B, ped/adol 1997,1997,1997 Hib (PRP-T) 03/16/1998, 8,1997,05/24 IPV 03/16/2001,1997,1997 Influenza, injectable, quadr ivalent, preservative free 06/23/2018,05/28/2015,05/16/2014,06/01 Influenza, injectable, trivalent 09/29/2012 MMR 02/09/2002,06/20/1998 Meningococcal Conj (Menactra) MCV4P 05/16/2014,0 02/26/2009 OPV 03/16/1998 Td (adult) (Tenivac), 5 Lf t etanus toxoid, PF, adsorbed 06/23/2018 Tdap 02/26/2009 Varicella 02/22/2007,03/16/1998 Family History Relation Name Status Comments Father Father: cholest rashaad or lipids Maternal Grandfather Mat GFa ther: cholesterol or lipids, eye, heart attack before age 50 Maternal Grandmother Alive Materna l Aunt: lupus, multiple sclerosis Other 1 cholesterol or lipids Other 2 cholesterol or lipids, eye, heart attack before age 50 Other 3 Alive lupus, multiple sclerosis Social History Tobacco Use Types Packs/Day Years Used Date Smoking Tobacco: Never Smokeless Tobacco: Never Alcohol Use Standard Drinks/Week Comments Yes 0 (1 standard drink = 0.6 oz pur e alcohol) Occasional Hunger/Food Answer Date Recorded No 04/28/2020 Stable Housing Answer Date Recorded No 04/28/2020 Transportation Concerns Answer Date Rec orded No 04/28/2020 Hazards in Home Answer Date Recorded No 06/14/2020 Financing Utilities Answer Date Recorde d No 06/14/2020 Safety at Home Answer Date Recorded No 06/14/2020 Outside Support Answer Date Recorded No 06/14/2020 Understanding Health Concerns Answer Da te Recorded No 06/14/2020 Financing Health Concerns Answer Date R ecorded No 06/14/2020 Missing School or Work Answer Date Guicho rded No 06/14/2020 Sex and Gender Information Value Date Recorded Sex Assigned at Not on file Legal Sex Male 11:14 PM EST Gender Identity Not on file Sexual Orientation Not on file Last Filed Vital Signs Vital Sign Reading Time Taken Comments Blood Pressure 122/80 06/23/2018 10:08 AM EST aileen nual Pulse 87 10/11/2018 5:30 PM EDT Temperature 37.5 ??C (99.5 ??F) 10/11/2018 5:30 PM ED T Respiratory Rate - - Oxygen Saturation 98% 10/11/2018 5:30 PM EDT Inhaled Oxygen Concentration - - Weight 103 kg (227 lb 9.6 oz) 06/23/2018 10:08 A M EST Height 179.7 cm (5' 10.75 ) 06/23/2018 10:08 AM EST Body Mass Index 31.97 06/23/2018 10:08 AM EST Plan of Treatment Health Maintenance Due Date Last Done Comments Influenza Vaccines (#1) 2024 06/23/20 18, 05/28/2015, 05/16/2014, Additional history exists COVID-19 Vaccine ( season) 2024 DTaP,Tdap,and Td Vaccines (8 - Td or Tdap) 06/23/2028 06/23/2018, 02/26/2009, 03/16/2001, Additional history exists Hepatitis B Vaccines Completed 1997, 1997, 1997 HIB Vaccines Completed 03/16/1998, 09/03, 1997, Additional history exists IPV Vaccines Completed 03/16/2001, 03/03, 1997, Additional history exists MMR Vaccines Completed 02/09/2002, 06/20/1998 Varicella Vaccines Completed 02/22/2007, 03/16/1998 HPV Vaccines Completed 06/01/2013, 09/04, 03/24/2012 Meningococcal Vaccine Completed 05/16/2014, 009 Hepatitis A Vaccines Aged Out No long er eligible based on patient's age to complete this topic Men B Vaccine Aged Out No longer elig ible based on patient's age to complete this topic Pneumococcal Vaccine Aged Out No long er eligible based on patient's age to complete this topic
[2024-12-20] MEDS: Doxycycline Monohydrate 100 MG CAPSULE PO (18:04)
[2024-12-20 18:06] VITALS: BP 120/82; PULSE 91; RESP 18; TEMP 36.7; O2SAT 98
== END 2024-12-20 18:07 | disposition home or self-care (01) ==
PROVIDERS: Physician Assistant Medical; Emergency Provider Emergency Medicine; PCP Internal Medicine
DX: K13.0 Diseases of lips (principal); Z79.899 Other long term (current) drug therapy
CPT/HCPCS: 36415; 80053; 85025; 85652; 86140; 99282; 99283